=== PATIENT | female | born 1995 | race African-American/Black ===

== ENCOUNTER 2020-09-04 02:02 | Inpatient (IN) | payer SELFPAY ==
[2020-09-04] MEDS ORDERED: METHYLERGONOVINE 0.2MG/ML AMP IM PRN (03:47)
[2020-09-04] MEDS ORDERED: CARBOPROST TROME 250 MCG/ML IM PRN (03:47)
[2020-09-04] MEDS ORDERED: Ringers Lactate 1,000 ML IV PRN (03:47)
[2020-09-04] MEDS ORDERED: Ringers Lactate 1,000 ML IV SCH (04:00)
[2020-09-04 04:15] VITALS: BMI 25.0
[2020-09-04 04:29] LABS: Absolute Lymphocytes (CBC) 2.6 K/uL (0.7-4.9); Basophils % 0.4 % (0-1.3); Hematocrit 24.3 % (36.0-45.0); Lymphocytes % 23.7 % (15.3-44.8); MPV 8.4 fL (7.6-11.3); RBC Red Blood Cell Count 3.75 M/uL (3.86-4.86)
[2020-09-04] MEDS ORDERED: PENICILLIN 5 MU in NA CHLORIDE 0.9% 100 ML IV ONE (05:16)
[2020-09-04 05:36] LABS: Anisocytosis 1+; Blood Morphology Comment NOTED (NOT SEEN); Platelet Estimate ADEQ; White Blood Cell Scan OK (OK)
[2020-09-04 05:37] LABS: Polychromasia SLIGHT; Rouleau NOTED; Target Cells FEW
[2020-09-04] MEDS ORDERED: OXYTOCIN/LR 20 UNIT/1,000 ML BAG IV ONE (05:44)
[2020-09-04] MEDS ORDERED: LIDOCAINE 1% MPF 30 ML VIAL ONE (05:44)
[2020-09-04] MEDS ORDERED: 0.2% ROPIVACAINE (200 MG/100 ML) BAG EP ONE (05:45)
[2020-09-04] MEDS ORDERED: FENTANYL CITR 100 MCG/2 ML IV ONE (05:46)
[2020-09-04] MEDS ORDERED: ROPIVACAINE HCL 0.2% 20ML AMP EP ONE (05:48)
[2020-09-04] MEDS ORDERED: FENTANYL CITR 100 MCG/2 ML ONE (06:04)
[2020-09-04] MEDS ORDERED: ROPIVACAINE HCL 100 ML EP ONE (06:05)
[2020-09-04] MEDS ORDERED: ROPIVACAINE HCL 20 ML ONE (06:05)
[2020-09-04] MEDS ORDERED: BUTORPHANOL 1 MG/ML INJ ONE (06:13)
[2020-09-04] MEDS ORDERED: Ringers Lactate 3,000 ML IV ONE (06:19)
[2020-09-04] MEDS ORDERED: LIDOCAINE 1% MPF 30 ML VIAL SQ ONE (06:22)
[2020-09-04] MEDS ORDERED: DOCUSATE NA/SENNA CONC 1 TAB PO PRN (06:44)
[2020-09-04] MEDS ORDERED: DIPHENHYDRAMINE 25 MG TAB/CAP PO PRN (06:44)
[2020-09-04] MEDS ORDERED: BISACODYL 10 MG RECTAL SUPP PR PRN (06:44)
[2020-09-04] MEDS ORDERED: Oxycodone HCl/Acetaminophen 1 TAB TAB PO PRN ×2 (06:44)
[2020-09-04] MEDS ORDERED: ACETAMINOPHEN 500 MG TAB PO PRN (06:44)
[2020-09-04] MEDS ORDERED: IBUPROFEN 200 MG TAB PO PRN (06:44)
[2020-09-04] MEDS ORDERED: OXYTOCIN/LR 20 UNIT/1,000 ML BAG IV SCH (07:00)
--- NOTE | 2020-09-04 07:35 | OP ---
Surgeon: Zhen Reilly MD Indication And Procedure: A 25-year-old 3, para 2, basically no care other than mary p in. The patient gives a history of living in [place], coming here in April, but then at other times told Dr. Hudson a different story. In any event, she came in this morning in early labor at 4 cm, requested epidural anesthesia. I came within next 30 minutes and checked the patient. She was 8 .5 to 9, 100% effaced, bulging membranes, and the patient and changed their mind and said the y did not want an epidural at that point. She was given 1 mg of Stadol at her request. Rh positive, COVID negative, strep unknown, and requested and received 1 dose of 5 million units of penicillin 1 hour or more prior to delivery. Rupture of membranes, clear fluid. The patient went to complete. S econd stage of about 15 to 20 minutes. Spontaneous vaginal delivery of an estimated 6-7 pounds femal e. Apgars 9 and 10. No episiotomy. No laceration. Schultze delivery of the placenta, which was he avily calcified, probably closer to 39-40 weeks' gestation estimate. Estimated blood loss 200 cc or less. The patient is severely anemic on admission with an admission hematocrit of 24. She says that her grandmother is anemic but is uncertain about whether she has ever been checked for sickle cell. Tolerated all procedures well. Final Diagnosis: Estimated 37-40 weeks , basically no care, vaginal delivery, peni cillin prophylaxis. Plan: We will get School Office Manager to talk to the patient and . JADE/KOBE Voice ID: [id number] Report ID: [id number]
--- NOTE | 2020-09-04 08:11 | PREOPHP ---
Date of Admission: 09/04/2020 History Of Present Illness: Smita Berkowitz is a 25-year-old 3, para 2, estimated at 37 week s 2 days, although the patient has had minimal care and this is in some doubt. She was here 2 weeks ago for decreased movement assessed by Dr. Hudson, was not in labor, and was sent home . She has been living here apparently since April and has not sought any care. Came in tonight reporting contractions. Over the period of observation, she had changed her cervix. Last re port, she was 4 within 35-40 minutes. She is now 8 cm, 100% effaced, 0 station. Evan regular ly. Baby looks good. She did not know her strep status, has been started on penicillin, but it will be less than an hour before the patient delivers and she is going rapidly now. Family History: Noncontributory. Past Medical History: She delivered at [facility] in 2019. Apparently, was living here, moved in [place] , and then moved back, is accompanied by a significant other tonight. Allergies: SHE HAS NO KNOWN ALLERGIES. Physical Examination: General: Basically normal. HEENT: Clear. Pupils are equal, round, and reactive to light and accommodation. Conjunctivae well perfused. No oral, lingual, or buccal lesions. Chest and Lungs: Clear. Heart: Without murmurs, thrills, heaves, or rubs, as per nurse's auscultation. Abdomen: Term size. Extremities: Clear. Pelvic: As stated 8.5 to 9 cm, 100% effaced, and evan regularly. We anticipate delivery fairly soon. She is requesting epidural, we will hydrate her, but I doubt ane sthesia will have time. KASHIFC/MODL Voice ID: [id number]
[2020-09-04 08:16] LABS: Barbiturates NEGATIVE (NEGATIVE); Benzodiazepines NEGATIVE (NEGATIVE); Cocaine NEGATIVE (NEGATIVE); METHAMPHETAM NEGATIVE (NEGATIVE); Methadone NEGATIVE (NEGATIVE); Opiates NEGATIVE (NEGATIVE); Phencyclidine NEGATIVE (NEGATIVE); THC Cannibis NEGATIVE (NEGATIVE)
[2020-09-04 08:31] LABS: Urine Appearance CLEAR (Clear); Urine Bilirubin NEGATIVE (Negataive); Urine Blood 1+ (Negative); Urine Color YELLOW (Yellow); Urine Glucose NEGATIVE (Negative); Urine Protein NEGATIVE (Negative); Urine Specific Gravity 1.015 (1.005-1.030); Urine Urobilinogen 0.2 mg/dL (0.2-1.0); Urine pH 8.5 (5.0-7.0)
[2020-09-04] MEDS ORDERED: PENICILLIN G POT 5 MU/100 ML IVPB IV ONE (09:00)
[2020-09-04 09:20] LABS: Urine Microscopic Reflex ORDER UMIC
[2020-09-04 09:21] LABS: Urine Bacteria 20-50 /HPF (<20)
[2020-09-04 09:22] LABS: Urine Sperm PRESENT (NONE SEEN)
[2020-09-04] MEDS: IBUPROFEN 600 MG TAB PO PRN (20:00)
[2020-09-05] MEDS: IBUPROFEN 600 MG TAB PO PRN (01:54)
[2020-09-05 07:49] VITALS: TEMP 98
[2020-09-05 15:07] VITALS: BP 121/68
[2020-09-05 22:44] LABS: RPR (Rapid Plasma Reagin) NON-REACT (NON-REACT)
--- NOTE | 2020-09-06 04:09 | DS ---
This is a 25-year-old multiparous female, basically no care. According to patient's best es zheng, she is 37 weeks and 2 days, possibly more, was seen here 2 or 3 weeks ago for contractions b ut was not in labor, sent home. Noted to have significant anemia prior to admission and is not sure whether she has ever been checked for sickle cell but says that her grandmother is also anemic. I roman ve ordered a sickle cell test. She came in and went into active labor. Delivered a 7 pounds 3 ounce female. Apgars . No episiotomy. No laceration. Schultze delivery of the placenta. Bret centa inspected and noted be heavily calcified but otherwise normal and intact. Less than 200 cc blo od loss. The patient is Rh positive. Immune to rubella. COVID negative. She did not know her stre p status and was given 5 million units of penicillin 1 hour or more prior to the delivery. Postpartu m, she is afebrile, ambulating, voiding, lochia is normal. Will be dismissed later today to report b ack to my office if she chooses for followup. She has not been good with her antepartum visits. I d oubt she will be seen back in my office, but I have offered her an appointment. Tdap suggested befor e she leaves. She has no complaints or problems this morning. Final Diagnoses: Term intrauterine , estimated 37 to 40 weeks gestation, basically no prena kori care. Rh positive. Strep unknown. COVID negative. Rubella immune. Anemia workup pending. Pe nicillin prophylaxis. cloud services architect consult ordered. NBC/MODL Voice ID: [id number] Report ID: [id number]
[2020-09-09 04:37] LABS: HBsAG Nonreactive (Nonreactive)
== END 2020-09-05 18:07 | disposition home or self-care (01) | DRG 807 ==
LOC: L&D 02:02 → 2ND-WC 03:12
PROVIDERS: ADMIT Specialist; ATTEND Specialist
PROC: 10E0XZZ Delivery of Products of Conception, External Approach (ICD-10-PCS; principal; 2020-09-04)
PROC: 10907ZC Drainage of Amniotic Fluid, Therapeutic from Products of Conception, Via Natural or Artificial Opening (ICD-10-PCS; 2020-09-04)
DX: O99.824 Streptococcus B carrier state complicating childbirth (principal); Z37.0 Single live birth; O99.02 Anemia complicating childbirth; Z3A.37 37 weeks gestation of pregnancy; Z20.822 Contact with and (suspected) exposure to COVID-19
CPT/HCPCS: 36415; 80307; 81003; 81015; 85025; 86592; 86850; 86900; 86901; 87086; 87088; 87340; J0595; J2210; J2540; J2590; J2795; J3010; J7120; U0003

== ENCOUNTER 2022-02-02 05:11 | Emergency (ER) | payer OTHER ==
[2022-02-02 05:45] LABS: Hematocrit 29.3 % (36.0-45.0); MCV 65.1 fL (80-100); MPV 8.2 fL (7.6-11.3); RBC Red Blood Cell Count 4.49 M/uL (3.86-4.86)
[2022-02-02] MEDS ORDERED: NA CHLORIDE 0.9% 1,000 ML ONE (05:46)
[2022-02-02] MEDS ORDERED: MAGNESIUM SULFATE 1 gm IVPB 1 GM/100 ML BAG IV ONE (05:46)
[2022-02-02] MEDS ORDERED: LORazepam 2 MG/ML VIAL ONE (05:46)
[2022-02-02 06:13] LABS: Potassium 2.4 mmol/L (3.5-5.1)
[2022-02-02 06:21] LABS: Urine Blood Negative (Negative); Urine Glucose Negative (Negative); Urine Protein 1+ (Negative); Urine Specific Gravity 1.015 (1.005-1.030); Urine pH >=9.0 (5.0-7.0)
[2022-02-02 06:30] LABS: Urine Bacteria <20 /HPF (<20); Urine RBC <5 /HPF (None Seen)
[2022-02-02] MEDS ORDERED: POTASSIUM CL SA 10 MEQ TAB PO ONE (06:35)
--- NOTE | 2022-02-02 06:58 | ER ---
Nurse's Notes [facility] Name: Smita Berkowitz Age: 26 yrs Sex: Female : 1995 Arrival Date: 02/02/2022 Time: 05:23 Bed 18 Private MD: Diagnosis: Muscle spasm;Hypokalemia;Hyperventilation Presentation: 02/02 05:23 Chief complaint: EMS states: pt started having muscle cramping that begins in the hands kd3 and also goes to the legs, then she starts shaking. no loss of consciousness. 20 gauge in the left A/C. pt recently started nifedipine for high blood pressure. Coronavirus screen: Vaccine status: Patient reports being unvaccinated. Ebola Screen: No symptoms or risks identified at this time. Initial Sepsis Screen: Does the patient meet any 2 criteria? No. Patient's initial sepsis screen is negative. Does the patient have a suspected source of infection? No. Patient's initial sepsis screen is negative. Risk Assessment: Do you want to hurt yourself or someone else? Patient reports no desire to harm self or others. Onset of symptoms was February 02, 2022. 05:23 Method Of Arrival: EMS: [facility] kd3 05:23 Acuity: KAMILLE 3 kd3 Triage Assessment: 05:27 General: Appears uncomfortable, Behavior is cooperative. Pain: Complains of pain in kd3 cramping generalized. Neuro: Level of Consciousness is awake, alert, obeys commands, Oriented to person, place, time, situation. Cardiovascular: Patient's skin is warm and dry. Respiratory: Airway is patent Trachea midline Respiratory effort is even, unlabored, Respiratory pattern is regular, symmetrical. 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 - Social history:: Smoking status: unknown. - Family history:: not pertinent. - Hospitalizations: : No recent hospitalization is reported. Screenin:23 Abuse screen: Denies threats or abuse. Denies injuries from another. Nutritional jg9 screening: No deficits noted. Tuberculosis screening: No symptoms or risk factors identified. Fall Risk None identified. Assessment: 06:58 Reassessment: Patient and/or family updated on plan of care and expected duration. Pain kd3 level reassessed. Patient is alert, oriented x 3, equal unlabored respirations, skin warm/dry/pink. Patient states feeling better. Patient states symptoms have improved. 07:23 Reassessment: No changes from previously documented assessment. Patient and/or family jg9 updated on plan of care and expected duration. Pain level reassessed. Patient is alert, oriented x 3, equal unlabored respirations, skin warm/dry/pink. ice pack placed on IV site due to k+ burning. Vital Signs: 05:23 BP 94 / 67; Pulse 108; Resp 15; Pulse Ox 100% ; Weight 65.77 kg; Height 5 ft. 7 in. kd3 (170.18 cm); Pain 8/10; 05:59 Temp 97.8(O); kd3 06:00 BP 103 / 72; Pulse 80; Resp 16; Pulse Ox 100% on R/A; kd3 07:20 BP 108 / 72; Pulse 79; Resp 12 S; Pulse Ox 100% on R/A; jg9 08:00 BP 113 / 77; Pulse 93; Resp 14 S; Pulse Ox 100% on R/A; jg9 08:30 BP 91 / 65; Pulse 82; Resp 14 S; Pulse Ox 100% on R/A; jg9 05:23 Body Mass Index 22.71 (65.77 kg, 170.18 cm) kd3 ED Course: 05:23 Patient arrived in ED. kd3 05:24 Mikey Dias MD is Attending Physician. rn 05:27 Triage completed. kd3 05:27 Arm band placed on right wrist. kd3 05:29 Manju Valdez, PRITI is Primary Nurse. kd3 06:20 Urine Microscopic Only Sent. kd3 06:20 CBC with Diff Sent. kd3 07:24 Patient has correct armband on for positive identification. Bed in low position. Call jg9 light in reach. Side rails up X 1. 09:01 No provider procedures requiring assistance completed. jg9 09:01 IV discontinued. jg9 Administered Medications: 05:50 Drug: Ativan (LORazepam) 0.5 mg Route: IVP; Site: left antecubital; kd3 06:58 Follow up: Response: No adverse reaction; Anxiety decreased kd3 05:50 Drug: NS 0.9% 1000 ml Route: IV; Rate: 1000 ml; Site: left antecubital; kd3 09:01 Follow up: IV Status: Completed infusion; IV Intake: 250ml jg9 05:50 Drug: Magnesium Sulfate 1 grams Route: IVPB; Infused Over: 1 hrs; Site: left [facility] antecubital; 07:30 Follow up: IV Status: Completed infusion; IV Intake: 100ml jg9 06:44 Drug: Potassium Chloride 40 mEq Route: PO; kd3 06:58 Follow up: Response: No adverse reaction kd3 07:23 Drug: Potassium Chloride 20 mEq Route: IV; Rate: calculated rate; Site: left [address]; 09:00 Follow up: IV Status: Completed infusion; IV Intake: 100ml jg9 Medication: 09:01 VIS not applicable for this client. jg9 Intake: 07:30 IV: 100ml; Total: 100ml. jg9 09:00 IV: 100ml; Total: 200ml. jg9 09:01 IV: 250ml; Total: 450ml. jg9 Outcome: 06:58 Discharge ordered by . rn 09:01 Discharged to home via wheelchair. jg9 09:01 Condition: stable 09:01 Discharge instructions given to patient, Instructed on discharge instructions, follow up and referral plans. Demonstrated understanding of instructions, follow-up care. 09:01 Patient left the ED. jg9 Signatures: Mikey Dias MD MD rn Doucette, Kyli, RN RN kd3 Charley Burgos RN RN jg9
--- NOTE | 2022-02-02 06:58 | EDPHYS ---
Physician Documentation [facility] Name: Simta Berkowitz Age: 26 yrs Sex: Female : 1995 Arrival Date: 02/02/2022 Time: 05:23 Bed 18 Private MD: ED Physician Mikey Dias HPI: 02/02 05:32 This 26 yrs old Black Female presents to ER via EMS with complaints of muscle cramps rn and spasm. 05:32 Pt reports muscle cramps and spasms, began this AM around 0400, reports hx of anxiety. rn Taylor snot feel sick, no fever/vomiting/diarrhea. Recently restarted her nifedipine and anti-depressant but has taken both before without reaction. No chest pain. Stable vitals for EMS, no intervention by EMS. . Onset: The symptoms/episode began/occurred this morning. Severity of symptoms: At their worst the symptoms were moderate in the emergency department the symptoms are unchanged. The patient has not experienced similar symptoms in the past. The patient has not recently seen a physician. 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 - Social history:: Smoking status: unknown. - Family history:: not pertinent. - Hospitalizations: : No recent hospitalization is reported. ROS: 05:32 Constitutional: Negative for fever, chills, and weight loss, Eyes: Negative for injury, rn pain, redness, and discharge, Neck: Negative for injury, pain, and swelling, Cardiovascular: Negative for chest pain, palpitations, and edema, Respiratory: Negative for cough, wheezing, and pleuritic chest pain, Abdomen/GI: Negative for abdominal pain, nausea, vomiting, diarrhea, and constipation, Back: Negative for injury and pain, MS/Extremity: Negative for injury and deformity, Skin: Negative for injury, rash, and discoloration, Neuro: Negative for headache, weakness, and seizure Exam: 05:32 Constitutional: This is a well developed, well nourished patient who is awake, alert, rn hyperventilating and seems very anxious, tearful. Able to slow her breathing down with coaching. Head/Face: Normocephalic, atraumatic. Eyes: No nystagmus. Periorbital areas with no swelling, redness, or edema. ENT: dry MM Cardiovascular: Tachycardic, regular Respiratory: + hyperventilating Abdomen/GI: soft, non-tender Skin: Warm, dry with normal turgor. Normal color with no rashes, no lesions, and no evidence of cellulitis. MS/ Extremity: Pulses equal, no cyanosis. Neurovascular intact. Full, normal range of motion. Equal circumference. Neuro: Awake and alert, GCS 15, oriented to person, place, time, and situation. Cranial nerves II-XII grossly intact. Motor strength 5/5 in all extremities. Sensory grossly intact. 06:07 ECG was reviewed by the Attending Physician. rn Vital Signs: 05:23 BP 94 / 67; Pulse 108; Resp 15; Pulse Ox 100% ; Weight 65.77 kg; Height 5 ft. 7 in. kd3 (170.18 cm); Pain 8/10; 05:59 Temp 97.8(O); kd3 06:00 BP 103 / 72; Pulse 80; Resp 16; Pulse Ox 100% on R/A; kd3 07:20 BP 108 / 72; Pulse 79; Resp 12 S; Pulse Ox 100% on R/A; jg9 08:00 BP 113 / 77; Pulse 93; Resp 14 S; Pulse Ox 100% on R/A; jg9 08:30 BP 91 / 65; Pulse 82; Resp 14 S; Pulse Ox 100% on R/A; jg9 05:23 Body Mass Index 22.71 (65.77 kg, 170.18 cm) kd3 MDM: 05:24 Patient medically screened. rn 06:07 ED course: Pt much improved after fluids/magnesium/ativan. Able to walk to bathroom rn now, and reports minimal cramps in hands. Smiling and joking now. Stable vitals. . 06:56 Differential Diagnosis hypokalemia, anxiety, hyperventilation. Data reviewed: vital rn signs, nurses notes, lab test result(s), EKG, and as a result, I will discharge patient. Counseling: I had a detailed discussion with the patient and/or guardian regarding: the historical points, exam findings, and any diagnostic results supporting the discharge/admit diagnosis, lab results, the need for outpatient follow up, to return to the emergency department if symptoms worsen or persist or if there are any questions or concerns that arise at home. Response to treatment: the patient's symptoms have markedly improved after treatment, and as a result, I will discharge patient. 02/02 05:25 Order name: CBC with Diff rn 02/02 05:25 Order name: Basic Metabolic Panel; Complete Time: 06:16 rn 02/02 05:25 Order name: Urine Microscopic Only; Complete Time: 06:56 rn 02/02 06:04 Order name: Manual Differential EDMS 02/02 06:20 Order name: Urine --Ancillary (enter results) ds4 02/02 06:21 Order name: Urine Dipstick-Ancillary; Complete Time: 06:56 EDMS 02/02 05:25 Order name: IV Start; Complete Time: 05:58 rn 02/02 05:25 Order name: Urine Dipstick-Ancillary (obtain specimen); Complete Time: 06:20 rn 02/02 05:25 Order name: EKG; Complete Time: 05:26 rn 02/02 05:25 Order name: Urine Test (obtain specimen); Complete Time: 06:20 rn 02/02 05:25 Order name: EKG - Nurse/Tech; Complete Time: 05:29 rn 02/02 05:25 Order name: Cardiac monitoring; Complete Time: 05:35 rn 02/02 05:25 Order name: O2 Sat Monitoring; Complete Time: 05:35 rn EC:07 Rate is 95 beats/min. Rhythm is regular. QRS [place] is Normal. MO interval is normal. QRS rn interval is normal. QT interval is prolonged at 485 msec. No Q waves. T waves are Normal. No ST changes noted. Clinical impression: NSR, prolonged QT. Interpreted by me. Reviewed by me. Administered Medications: 05:50 Drug: Ativan (LORazepam) 0.5 mg Route: IVP; Site: left antecubital; kd3 06:58 Follow up: Response: No adverse reaction; Anxiety decreased kd3 05:50 Drug: NS 0.9% 1000 ml Route: IV; Rate: 1000 ml; Site: left antecubital; kd3 09:01 Follow up: IV Status: Completed infusion; IV Intake: 250ml jg9 05:50 Drug: Magnesium Sulfate 1 grams Route: IVPB; Infused Over: 1 hrs; Site: left [facility] antecubital; 07:30 Follow up: IV Status: Completed infusion; IV Intake: 100ml jg9 06:44 Drug: Potassium Chloride 40 mEq Route: PO; kd3 06:58 Follow up: Response: No adverse reaction kd3 07:23 Drug: Potassium Chloride 20 mEq Route: IV; Rate: calculated rate; Site: left [facility] antecubital; 09:00 Follow up: IV Status: Completed infusion; IV Intake: 100ml jg9 Disposition Summary: 02/02/22 06:58 Discharge Ordered Location: Home rn Problem: new rn Symptoms: have improved rn Condition: Stable rn Diagnosis - Muscle spasm rn - Hypokalemia rn - Hyperventilation rn Followup: rn - With: Private Physician - When: As needed - Reason: Recheck today's complaints, Re-evaluation by your physician Discharge Instructions: - Discharge Summary Sheet rn - Potassium Content of Foods rn - Hyperventilation rn - Muscle Cramps and Spasms rn - Hypokalemia rn Forms: - Medication Reconciliation Form rn - Thank You Letter rn - Antibiotic travel journalist - Prescription Opioid Use rn Signatures: Dispatcher [employer] Mikey Sánchez MD MD rn Doucette, Kyli RN RN kd3 Charley Burgos RN RN jg9
[2022-02-02 07:04] LABS: Anisocytosis 2+; Blood Morphology Comment NOTED (NOT SEEN); Platelet Estimate ADEQ
[2022-02-02] MEDS ORDERED: KCL 20 MEQ/100 mL IVPB 100 ML IV ONE (07:08)
--- NOTE | 2022-02-02 12:29 | EKG ---
Test Date: 2022-02-02 Test Time: 05:30:30 Professor Of Radiology: MEASUREMENT RESULTS: Intervals: Rate: 110 UT: 136 QRSD: 68 QT: 374 QTc: 506 [place]: P: 80 UT: 136 QRS: 75 T: 72 INTERPRETIVE STATEMENTS: Sinus tachycardia Nonspecific ST and T wave abnormality Abnormal ECG No previous ECG available for comparison Electronically Signed On 02-02-22 12:28:02 CDT by Benja Benitez
[2022-02-02 22:14] LABS: Urine Specific Gravity/Preg 1.015 (1.005-1.030)
[2022-02-03 15:17] VITALS: TEMP 97.8
[2022-02-03 15:19] VITALS: O2SAT 100
[2022-02-03 15:38] VITALS: BP 94/67
== END 2022-02-02 09:01 | disposition home or self-care (01) ==
LOC: ER 05:11
DX: M62.838 Other muscle spasm (principal); E87.6 Hypokalemia; R06.4 Hyperventilation; F41.9 Anxiety disorder, unspecified; I10 Essential (primary) hypertension
CPT/HCPCS: 96365; 93005 ×2; 85025; 80048; 36415; 81025; 96375; 99284; 96366; J3480; J3475; J7030; 81003; 81015

== ENCOUNTER 2023-01-04 17:55 | Emergency (ER) | payer OTHER ==
[2023-01-04 19:07] LABS: Hematocrit 25.5 % (36.0-45.0); Lymphocytes % 30.3 % (15.3-44.8); MCV 64.3 fL (80-100); Platelets 231 thou/uL (152-406); RBC Red Blood Cell Count 3.97 M/uL (3.86-4.86)
--- NOTE | 2023-01-04 19:11 | ER ---
Nurse's Notes [facility] Name: Smita Berkowitz Age: 27 yrs Sex: Female : 1995 Arrival Date: 01/04/2023 Time: 17:55 Bed External Waiting Private MD: Diagnosis: related conditions, unspecified, third trimester;Abnormal uterine and vaginal bleeding, unspecified;Pelvic and perineal pain Presentation: 01/04 18:04 Chief complaint: Patient states: pelvic pressure and bright red spotting onset last cm10 night. Pt states she is approximately 30 weeks . Coronavirus screen: Vaccine status: Patient reports being unvaccinated. Ebola Screen: Patient denies travel to an Ebola-affected area in the 21 days before illness onset. No symptoms or risks identified at this time. Initial Sepsis Screen: Does the patient meet any 2 criteria? No. Patient's initial sepsis screen is negative. Does the patient have a suspected source of infection? No. Patient's initial sepsis screen is negative. Risk Assessment: Do you want to hurt yourself or someone else? Patient reports no desire to harm self or others. Onset of symptoms was January 04, 2023. 18:04 Method Of Arrival: Ambulatory cm10 18:04 Acuity: KAMILLE 3 cm10 MEAT CARVER: 18:10 5, Full Term 3, Living 3 cm10 Historical: - Allergies: 18:09 No Known Allergies; cm10 - PMHx: 18:09 Anxiety; Hypertensive disorder; cm10 - Immunization history:: Adult Immunizations unknown. - Social history:: Smoking status: Patient denies any tobacco usage or history of. Screenin:15 [facility] ED Fall Risk Assessment (Adult) Score/Fall Risk Level 0 - 2 = Low Risk. Abuse eh3 screen: Denies threats or abuse. Denies injuries from another. Nutritional screening: No deficits noted. Tuberculosis screening: No symptoms or risk factors identified. Assessment: 18:15 General: Appears in no apparent distress. comfortable, Behavior is calm, cooperative, eh3 appropriate for age. Pain: Denies pain. Neuro: Level of Consciousness is awake, alert, obeys commands, Oriented to person, place, time, situation. Cardiovascular: Capillary refill < 3 seconds Patient's skin is warm and dry. Respiratory: Airway is patent Respiratory effort is even, unlabored, Respiratory pattern is regular, symmetrical. GI: Abdomen is round non-distended. Derm: Skin is healthy with good turgor, Skin is pink, warm \T\ dry. Musculoskeletal: Circulation, motion, and sensation intact. Range of motion: intact in all extremities. 19:00 Reassessment: Patient appears in no apparent distress at this time. Patient and/or 3 family updated on plan of care and expected duration. Pain level reassessed. Patient is alert, oriented x 3, equal unlabored respirations, skin warm/dry/pink. 20:00 Reassessment: Patient appears in no apparent distress at this time. Patient and/or 3 family updated on plan of care and expected duration. Pain level reassessed. Patient is alert, oriented x 3, equal unlabored respirations, skin warm/dry/pink. 21:00 Reassessment: Patient appears in no apparent distress at this time. Patient and/or 3 family updated on plan of care and expected duration. Pain level reassessed. Patient is alert, oriented x 3, equal unlabored respirations, skin warm/dry/pink. 22:23 Reassessment: Patient for transfer to [facility]3] report called to PRITI Keith. fu Questions were answered. Vital Signs: 18:04 BP 122 / 82; Pulse 90; Resp 18; Temp 99.2; Pulse Ox 100% ; Weight 71.67 kg; Height 5 cm10 ft. 7 in. ; Pain 5/10; 19:00 BP 119 / 87; Pulse 80; Resp 18; Pulse Ox 100% on R/A; eh3 20:00 BP 125 / 93; Pulse 79; Resp 18; Pulse Ox 100% on R/A; eh3 21:00 BP 122 / 87; Pulse 72; Resp 18; Pulse Ox 100% on R/A; eh3 22:00 BP 149 / 94; Pulse 82; Resp 16; Pain 0/10; fu 18:04 Body Mass Index 24.75 (71.67 kg, 170.18 cm) cm10 18:04 Pain Scale: Adult cm10 22:00 Pain Scale: Adult fu Vitals: 18:45 Heart Tones 128. eh3 ED Course: 17:56 Patient arrived in ED. ts1 17:57 Osmin Tipton PA is PHCP. cp 17:57 Osmin Larsen MD is Attending Physician. cp 18:09 Triage completed. cm10 18:10 Arm band placed on Patient placed in an exam room, on a stretcher. cm10 18:15 Patient has correct armband on for positive identification. Placed in gown. Bed in low eh3 position. Call light in reach. Side rails up X2. Provided Education on: Use of call houser. Pulse ox on. NIBP on. Door closed. Noise minimized. Lights dimmed. Warm blanket given. 18:30 Inserted saline lock: 20 gauge in right antecubital area, using aseptic technique. eh3 Blood collected. 19:17 Initiated transfer with [facility], spoke with Jerry Hylton. 19:24 Elmira Mayers, RN is Primary Nurse. eh3 20:11 Assist provider with pelvic exam: Performed by Osmin MONTIEL Patient tolerated well. eh3 21:00 OB Limited US In Process Unspecified. EDMS 21:22 Report given to PRITI Shea. eh3 22:10 IV discontinued, bleeding controlled, Pressure dressing applied. fu 22:21 Pt accepted for transfer to [facility]3] by Dr. Silva, Stefum \T\ 2208 per Jerry Hylton. Pt will be traveling by POV per TIANA Tipton. Administered Medications: 21:55 Drug: Potassium PO Effervescent Tablet 50 mEq Route: PO; fu 22:25 Follow up: Response: No adverse reaction fu Medication: 22:00 VIS not applicable for this client. fu Outcome: 19:10 ER care complete, transfer ordered by MD. cp 22:25 Discharge ordered by MD. cp 22:33 ER care complete, transfer ordered by MD. cp 22:35 Transferred fu 22:35 Condition: stable 22:35 Instructed on the need for transfer. 01/05 01:46 Patient left the ED. fu Signatures: Dispatcher [employer] EDMS Osmin Tipton PA PA cp Umadhay, Felix, RN RN fu Marsh, Wendy Elmira Mayers, PRITI MARCOS 3 Kelly Gutierrez PAS PAS 1 Janie Cota, RN RN cm10
--- NOTE | 2023-01-04 19:11 | EDPHYS ---
Physician Documentation [facility] Name: Smita Berkowitz Age: 27 yrs Sex: Female : 1995 Arrival Date: 01/04/2023 Time: 17:55 Bed External Waiting Private MD: [place] Physician Osmin Larsen HPI: 01/04 18:13 This 27 yrs old Black Female presents to ER via Ambulatory with complaints of Pelvic cp Pain. 18:15 Patient is a 27-year-old female who is G5, P3 with 1 miscarriage. Patient presents to the emergency department with pelvic pain, spotting and also has noted some passage of small amount of clear fluid since last night. Patient reports she is approximately 30 weeks gestation. RODEO PERFORMER: 18:10 5, Full Term 3, Living 3 cm10 Historical: - Allergies: 18:09 No Known Allergies; cm10 - PMHx: 18:09 Anxiety; Hypertensive disorder; cm10 - Immunization history:: Adult Immunizations unknown. - Social history:: Smoking status: Patient denies any tobacco usage or history of. ROS: 18:18 Constitutional: Negative for body aches, chills, fever, poor PO intake. cp 18:18 Respiratory: Negative for cough, shortness of breath, wheezing. 18:18 Abdomen/GI: Negative for vomiting, diarrhea, constipation. 18:18 : Positive for pelvic pain, vaginal bleeding, Negative for urinary symptoms. 18:18 Neuro: Negative for altered mental status, headache, weakness. 18:18 All other systems are negative. Exam: 18:21 Head/Face: Normocephalic, atraumatic. cp 18:21 Constitutional: The patient appears in no acute distress, alert, awake, non-toxic, well developed, well nourished. 18:21 Eyes: Periorbital structures: appear normal, Conjunctiva: normal, no exudate, no injection, Sclera: no appreciated abnormality, Lids and lashes: appear normal, bilaterally. 18:21 ENT: External ear(s): are unremarkable, Nose: is normal, Mouth: Lips: moist, Oral mucosa: pink and intact, moist, Posterior pharynx: is normal, airway is patent, no erythema, no exudate. 18:21 Chest/axilla: Inspection: normal. 18:21 Cardiovascular: Rate: normal, Rhythm: regular. 18:21 Respiratory: the patient does not display signs of respiratory distress, Respirations: normal, no use of accessory muscles, no retractions, labored breathing, is not present, Breath sounds: are clear throughout, no decreased breath sounds, no stridor, no wheezing. 18:21 Abdomen/GI: Inspection: gravid appearance, is noted, Bowel sounds: active, all quadrants, Palpation: soft, in all quadrants, nontender, in all quadrants. 18:21 Back: pain, is absent, ROM is normal. 18:21 Neuro: Orientation: to person, place \T\ time. Mentation: is normal, Gait: is steady, at a normal pace, without difficulty. Vital Signs: 18:04 BP 122 / 82; Pulse 90; Resp 18; Temp 99.2; Pulse Ox 100% ; Weight 71.67 kg; Height 5 cm10 ft. 7 in. ; Pain 5/10; 19:00 BP 119 / 87; Pulse 80; Resp 18; Pulse Ox 100% on R/A; eh3 20:00 BP 125 / 93; Pulse 79; Resp 18; Pulse Ox 100% on R/A; eh3 21:00 BP 122 / 87; Pulse 72; Resp 18; Pulse Ox 100% on R/A; eh3 22:00 BP 149 / 94; Pulse 82; Resp 16; Pain 0/10; fu 18:04 Body Mass Index 24.75 (71.67 kg, 170.18 cm) cm10 18:04 Pain Scale: Adult cm10 22:00 Pain Scale: Adult fu MDM: 18:13 Patient medically screened. cp 20:00 Differential diagnosis: UTI, pre-term labor. cp 21:45 Data reviewed: vital signs, nurses notes, lab test result(s), radiologic studies, cp ultrasound. 22:14 ED course: consult with DR Lopez, OB physician, will accept patient at Labor and cp Delivery floor for evaluation at [facility] . 01/04 18:13 Order name: Abo/rh Typing; Complete Time: 21:29 cp 01/04 18:13 Order name: Basic Metabolic Panel; Complete Time: 21:29 cp 01/04 21:29 Interpretation: Normal except: K 3.1; BUN 3; CA 8.0. 01/04 18:13 Order name: CBC with Diff; Complete Time: 21:29 cp 01/04 21:29 Interpretation: Normal except: HGB 8.5; HCT 25.5; MCV 64.3; MCH 21.4; RDW 20.7. cp 01/04 18:13 Order name: Quantitative Hcg; Complete Time: 21:29 cp 01/04 21:29 Interpretation: Reviewed. cp 01/04 19:31 Order name: CBC Smear Scan; Complete Time: 21:29 EDMS 01/04 20:12 Order name: OB Limited US; Complete Time: 21:39 cp 01/04 18:13 Order name: IV Saline Lock; Complete Time: 19:25 cp 01/04 18:13 Order name: Labs collected and sent; Complete Time: 19:24 cp 01/04 18:13 Order name: NPO; Complete Time: 19:24 cp 01/04 18:14 Order name: FHT's; Complete Time: 19:50 cp Administered Medications: 21:55 Drug: Potassium PO Effervescent Tablet 50 mEq Route: PO; fu 22:25 Follow up: Response: No adverse reaction fu Disposition Summary: 01/04/23 22:33 Transfer Ordered Transfer Location: [facility](01/04/23 22:33) cp Reason: Higher level of care(01/04/23 22:33) cp Condition: Stable(01/04/23 22:33) cp Problem: new(01/04/23 22:33) cp Symptoms: have improved(01/04/23 22:33) cp Accepting Physician: DR Lopez(01/05/23 01:46) fu Diagnosis - related conditions, unspecified, third trimester(01/04/23 22:33) cp - Abnormal uterine and vaginal bleeding, unspecified cp - Pelvic and perineal pain(01/04/23 22:33) cp Discharge Instructions: - Discharge Summary Sheet cp - Abnormal Uterine Bleeding cp - Pelvic Pain, Female cp - Third Trimester of cp - Form - Excuse from Work, School, or Physical Activity cp Forms: - Medication Reconciliation Form cp - SBAR form cp Signatures: Dispatcher [employer] EDMS Osmin Tipton PA PA cp Umadhay, Felix, RN RN fu Martinez, Clarissa RN RN cm10 Corrections: (The following items were deleted from the chart) 22:23 19:10 doctor cp cp 22:23 19:10 [facility] cp cp 22: 19:10 Higher level of care cp cp : 19:10 Stable cp cp : 19:10 new cp cp : 19:10 are unchanged cp cp : 19:10 related conditions, unspecified, third trimester cp cp : 19:10 Other specified abnormal uterine and vaginal bleeding cp cp :23 19:10 Pelvic and perineal pain cp cp 22:30 22:25 Home cp cp :30 22:25 new cp cp :30 22:25 have improved cp cp :30 22:25 Stable cp cp 22:30 22:25 related conditions, unspecified, third trimester cp cp 01/05 01:46 01/04 22:33 DR Lopez cp fu
[2023-01-04 19:30] LABS: Anisocytosis 1+; Blood Morphology Comment NOTED (NOT SEEN); Hypochromasia 1+; Platelet Estimate ADEQ; White Blood Cell Scan OK (OK)
[2023-01-04 19:52] LABS: Potassium 3.1 mEq/L (3.5-5.1)
--- NOTE | 2023-01-04 21:34 | RAD REPORT ---
EXAM DESCRIPTION: US - OB Limited - 01/04/2023 8:59 pm CLINICAL HISTORY: pelvic pain;Vaginal bleeding COMPARISON: No comparisons TECHNIQUE: Sonographic grayscale and color flow images of a third -trimester were obtained through transabdominal approach. FINDINGS: A single live intrauterine is identified. Fetus is in cephalic presentation. Bret centa has formed anteriorly, and demonstrates normal appearance for gestational age. BPD: 7.39 cm, corresponding to 29 weeks, 4 days. HC: 27.31 cm, corresponding to 29 weeks, 5 days. AC: 25.21 cm, corresponding to 29 weeks, 2 days. FL: 5.74 cm, corresponding to 30 weeks, 0 days. heart rate: 148 BPM. Amniotic fluid index: 9.71 cm, within normal limits. Graft Estimated weight: 1445 grams (3 pound, 3 ounce). Cervical canal measures 3.6 cm in length and is well apposed. Maternal ovaries were not visualized. Adnexal regions show no suspicious findings. No free fluid. IMPRESSION: 1. Single live intrauterine in cephalic presentation. 2. Amniotic fluid index within normal limits. 3. Calculated gestational age: 29 weeks, 4 days. Estimated due date by ultrasound: 03/18/2023.
[2023-01-04] MEDS ORDERED: POTASSIUM 25 MEQ EFFERV TAB ONE (21:58)
[2023-01-05 02:14] VITALS: TEMP 99.2; O2SAT 100
[2023-01-05 02:32] VITALS: BP 149/94
== END 2023-01-05 01:46 | disposition short-term general hospital (02) ==
LOC: ER 17:55
DX: O26.893 Other specified pregnancy related conditions, third trimester (principal); N93.9 Abnormal uterine and vaginal bleeding, unspecified; R10.2 Pelvic and perineal pain; I10 Essential (primary) hypertension; F41.9 Anxiety disorder, unspecified
CPT/HCPCS: 36415; 76815; 80048; 84702; 85025; 86900; 86901; 99285